=== PATIENT | male | born 1935 | race Caucasian/White ===

== ENCOUNTER 2022-02-10 09:21 | Emergency (ER) | payer OTHER ==
[~2022-02-10] VITALS: Ht 177.8 cm; Wt 77.1 kg
[2022-02-10] MEDS ORDERED: IOHEXOL 350 MG/ML 100 ML VIAL ONE (09:41)
[2022-02-10] MEDS ORDERED: SODIUM CHLORIDE 0.9% 100 ML ONE (09:41)
[2022-02-10 10:09] LABS: BASOPHILS % (AUTO) 0.8 % (0.0-2.0); EOSINOPHILS % (AUTO) 4.2 % (1.0-6.0); HEMATOCRIT 25.6 % (41-53); HEMOGLOBIN 8.5 g/dL (13.5-17.5); LYMPHOCYTES # (AUTO) 1.6 K/uL (1.0-4.8); MEAN CORPUSCULAR HEMOGLOBIN 31.3 pg (26.0-34.0); MEAN CORPUSCULAR HGB CONC 33.1 G/dL (31.0-37.0); MEAN CORPUSCULAR VOLUME 95 fL (80-100); MONOCYTES # (AUTO) 0.4 K/uL (0.1-1.0); MONOCYTES % (AUTO) 5.9 % (2.0-9.0); NEUTROPHILS # (AUTO) 4.2 K/uL (1.8-7.7); NEUTROPHILS % (AUTO) 64.1 % (40.0-70.0); PLATELET COUNT (AUTO) 269 K/uL (150-450); RED BLOOD CELL COUNT(AUTO) 2.71 MIL/uL (4.50-5.90); RED CELL DISTRIBUTION WIDTH 14.2 % (11.5-14.5)
[2022-02-10 10:22] LABS: PROTHROMBIN TIME 10.9 SEC (9.4-11.6)
[2022-02-10 10:43] LABS: B-TYPE NATRIURETIC PEPTIDE 21 pg/mL (0-100)
[2022-02-10 11:01] LABS: ALANINE AMINOTRANSFERASE 41 U/L (12-78); ALBUMIN 2.6 g/dL (3.4-5.0); ALKALINE PHOSPHATASE 145 U/L (46-116); ANION GAP 7 mmol/L (8-16); ASPARTATE AMINOTRANSFERASE 22 U/L (15-37); BILIRUBIN,TOTAL 0.2 mg/dL (0.1-1.0); CARBON DIOXIDE 28 mmol/L (22-29); CHLORIDE 108 mmol/L (98-107); CREATINE KINASE, TOTAL ONLY 10 U/L (39-308); CREATININE 1.06 mg/dL (0.60-1.30); GLOMERULAR FILTR. RATE CALC > 60 mL/min (>60); GLUCOSE,RANDOM 162 mg/dL (70-110); POTASSIUM 3.9 mmol/L (3.5-5.1); SODIUM SERUM 143 mmol/L (136-145); TOTAL PROTEIN, SERUM 5.5 g/dL (6.4-8.2); UREA NITROGEN, BLOOD 39 mg/dL (7-18)
[2022-02-10 11:04] LABS: COVID AG,FIA SOURCE NASAL SWAB
[2022-02-10 11:07] LABS: LACTIC ACID 2.1 mmol/L (0.4-2.0)
[2022-02-10 11:08] LABS: CALCIUM, TOTAL 10.6 mg/dL (8.8-10.5)
[2022-02-10] MEDS ORDERED: CefTRIAXone 1 GM/DEXTROSE 50 ML IV ONE (11:15)
[2022-02-10] MEDS ORDERED: AZITHROMYCIN 500 MG/NS 250 ML IV ONE (11:15)
[2022-02-10] MEDS ORDERED: SODIUM CHLORIDE 0.9% 2,300 ML IV ONE (11:15)
[2022-02-10 11:29] LABS: APPEARANCE,URINE CLEAR (CLEAR); BILIRUBIN,URINE NEGATIVE (NEGATIVE); GLUCOSE, URINE (UA) NEGATIVE (NEGATIVE); KETONES,URINE NEGATIVE (NEGATIVE); NITRATE,URINE NEGATIVE (NEGATIVE); OCCULT BLOOD,URINE NEGATIVE (NEGATIVE); PROTEIN,URINE TRACE mg/dL (NEGATIVE); SPECIFIC GRAVITIY, URINE 1.041 (1.003-1.030); UROBILINOGEN,URINE <=1.0 mg/dL (<=1.0)
[2022-02-10] MEDS ORDERED: CEFP200T12 PO (11:32)
[2022-02-10] MEDS ORDERED: ASPI81TA87 PO (11:32)
[2022-02-10] MEDS ORDERED: SENN8.6T90 PO (11:32)
[2022-02-10] MEDS ORDERED: LISI-894 PO (11:32)
[2022-02-10] MEDS ORDERED: TAMS-13 PO (11:32)
[2022-02-10] MEDS ORDERED: AMLO2.5T96 PO (11:32)
[2022-02-10] MEDS ORDERED: ATOR20TA86 PO (11:32)
[2022-02-10] MEDS ORDERED: OLAN2.5T29 PO (11:32)
[2022-02-10] MEDS ORDERED: MELA3TAB89 PO (11:32)
[2022-02-10 11:39] LABS: AMPHET/METH SCREEN,URINE NEGATIVE (NEGATIVE); BARBITURATE SCREEN, URINE NEGATIVE (NEGATIVE); BENZODIAZEPINES SCREEN,URINE NEGATIVE (NEGATIVE); CANNABINOID SCREEN,URINE NEGATIVE (NEGATIVE); COCAINE SCREEN,URINE NEGATIVE (NEGATIVE); METHADONE SCREEN, URINE NEGATIVE (NEGATIVE); OPIATE SCREEN,URINE NEGATIVE (NEGATIVE)
[2022-02-10 11:42] LABS: LEUKOCYTE ESTERASE ,URINE SMALL (NEGATIVE)
[2022-02-10 11:43] LABS: BACTERIA,URINE None Seen /HPF (None Seen); RBC,URINE None Seen /HPF (0-2)
[2022-02-10 11:51] LABS: PHENCYCLIDINE SCREEN,URINE NEGATIVE (NEGATIVE)
[2022-02-10 12:03] LABS: INFLUENZA TYPE A NEGATIVE FOR TYPE A (NEGATIVE); INFLUENZA TYPE B NEGATIVE FOR TYPE B (NEGATIVE)
[2022-02-10 14:37] VITALS: BP 146/88
== END 2022-02-10 16:19 | disposition short-term general hospital (02) ==
LOC: EMS 09:22
DX: G93.40 Encephalopathy, unspecified (principal); F03.90 Unspecified dementia, unspecified severity, without behavioral disturbance, psychotic disturbance, mood disturbance, and anxiety; I10 Essential (primary) hypertension; Z20.822 Contact with and (suspected) exposure to COVID-19
CPT/HCPCS: 99291; 70496; 96365; 71045; 92610; 96367; 87426; 80053; 81001; 82550; 83605; 83880; 84484; 85025; 85610; 85730; 87040; 87804; 86850; 86900; 86901; 36415; 70498; 82948; 93005; 80307; 84145; 70450; J0456; J0696; Q9967; J7050